=== PATIENT | female | born 1940 | race Caucasian/White ===

== ENCOUNTER → 2017-03-20 | Outpatient (CLI) | payer OTHER | LOC: FIMAGING 12:15 | PROVIDERS: ATTEND Obstetrics & Gynecology | DX: Z12.31 Encounter for screening mammogram for malignant neoplasm of breast (principal) | CPT/HCPCS: G0202 ==

== ENCOUNTER → 2017-12-17 | Outpatient (CLI) | payer OTHER | LOC: FIMAGING 10:11 | PROVIDERS: ATTEND Family Medicine | DX: R10.11 Right upper quadrant pain (principal) ==

== ENCOUNTER 2017-12-27 14:38 | Inpatient (IN) | payer OTHER ==
[2017-12-27] MEDS ORDERED: NS 500 ML IV ONE (15:33)
--- NOTE | 2017-12-27 15:37 | EDPHY ---
H & P Time Seen by Provider: 12/27/17 15:02 HPI/ROS: HPI Lower abdominal pain. 77-year-old female by private vehicle with her daughter. This patient reports that she awoke at 2:00 a.m. This morning with left lower quadrant abdominal pain. She describes pain as sharp and aching. She reports that it got better this morning but then returned early this afternoon and has been persistent since that time. Her last meal was at approximately 12 noon. She reports her last bowel movement was this morning. No melena. No blood in her stool. She has had some mild nausea but no vomiting. She has a history of diverticulosis. ROS: Constitutional: No fever, no chills. No weakness. Eyes: No discharge. No changes in vision. ENT: No sore throat. No nasal congestion or rhinorrhea. Respiratory: No cough. No shortness of breath. Cardiac: No chest pain, no palpitations. Gastrointestinal: As above, no vomiting, no diarrhea. Genitourinary: No hematuria. No dysuria or increased frequency with urination. Musculoskeletal: No back pain. No neck pain. No myalgias or arthralgias. Skin: No rashes. Neurological: No headache. No focal weakness or altered sensation. Past medical history: GERD, hypertension, type 2 diabetes, diverticulosis, gout. Social history: Nonsmoker. Here with her daughter. No alcohol. Physical Exam: General Appearance: Alert, no distress. This patient is responding to questions appropriately and in full sentences. This patient appears well- hydrated and well-nourished. Eyes: Pupils equal and round no pallor or injection. No lid edema, erythema or injection. Respiratory: There are no retractions, lungs are clear to auscultation with good air movement bilaterally. Cardiovascular: Regular rate and rhythm. No murmur. Gastrointestinal: Distended abdomen, but according to the patient this is her habitus. Abdomen is soft with mild to moderate left lower quadrant left inguinal tenderness on palpation, no masses, bowel sounds normal. No focal tenderness at McBurney's point. No Thomas sign. Neurological: Motor sensory function is grossly intact. Cranial nerves are normal. Gait is normal. Skin: Warm and dry, no rashes. Musculoskeletal: Neck is supple and nontender. Extremities are symmetrical. All joints range without pain or impingement. Psychiatric: No agitation. No depression. Database: EKG: Imaging: CT abdomen and pelvis with IV contrast: Significant for a mild to moderate sigmoid diverticulitis. No abscess. No free air. Results were discussed with staff radiologist Dr. Danyel Pineda. Procedures: Emergency department course: Triage vital signs reviewed. She is hypertensive. Low level tachycardia. Afebrile. IV was placed. She was placed on a monitor. She will be given 500 cc of IV normal saline over the next hour. CT of the abdomen and pelvis will be obtained to evaluate for diverticulitis. She declines pain medication and antiemetics at this time. 4:50 p.m., patient re-evaluated. She is now complaining of worsening left lower quadrant abdominal pain. She is asking for pain medication. She will be given IV hydromorphone as needed for pain and IV Zofran. I discussed the results of her CT scan. I discussed admission for IV antibiotics and further treatment. She endorses. She will be started on IV ciprofloxacin and Flagyl in the emergency department. Hospitalist paged. 4:55 p.m., spoke with hospitalist. Case discussed in detail. Patient accepted for admission to the hospitalist service. Her remaining emergency department course under my care has been uneventful. The patient was admitted in stable condition to the hospitalist service. Differential Diagnosis: The differential diagnosis on this patient includes but is not limited to diverticulitis, hernia, colitis, urinary tract infection. This represents a partial list of diagnoses considered. These considerations are based on history , physical exam, past history, reassessment and diagnostic testing. Smoking Status: Never smoked Constitutional: Initial Vital Signs Temperature (C) 37.1 C 12/27/17 14:42 Heart Rate 100 12/27/17 14:42 Respiratory Rate 18 12/27/17 14:42 Blood Pressure 199/90 H 12/27/17 14:42 O2 Sat (%) 94 12/27/17 14:42 O2 Delivery Mode Room Air Allergies/Adverse Reactions: No Known Allergies Allergy (Unverified 03/26/15 10:27) Home Medications: Medication Instructions Recorded Allopurinol [Allopurinol 300 MG 300 mg PO DAILY 03/26/15 (RX)] Cholecalciferol (Vitamin D3) 4,000 unit PO DAILY 03/26/15 [Vitamin D3] Herbals/Supplements -Info Only 1 ea PO DAILY 03/26/15 LISINOPRIL/HYDROCHLOROTHIAZIDE 1 tab PO DAILY 03/26/15 [PRINZIDE 20-25 MG TABLET] Naproxen Sodium [Aleve 220 MG (*)] 440 mg PO BID 03/26/15 Omeprazole 40 mg PO DAILY 03/26/15 Ciprofloxacin [Cipro] 500 mg PO BID #6 tab 03/28/15 metFORMIN HCL [Glucophage 500 mg 500 mg PO BIDMEAL 12/27/17 (*)] Medical Decision Making - Data Points Laboratory Results: Laboratory Results 12/27/17 15:30 12/27/17 15:30 12/27/17 12/27/17 12/27/17 15:30 15:30 15:30 WBC 13.28 10^3/uL H 10^3/uL (3.80-9.50) RBC 5.33 10^6/uL 10^6/uL (4.18-5.33) Hgb 16.6 g/dL H g/dL (12.6-16.3) Hct 48.8 % H % (38.0-47.0) MCV 91.6 fL fL (81.5-99.8) MCH 31.1 pg pg (27.9-34.1) MCHC 34.0 g/dL g/dL (32.4-36.7) RDW 14.2 % % (11.5-15.2) Plt Count 144 10^3/uL L 10^3/uL (150-400) MPV 11.0 fL fL (8.7-11.7) Neut % (Auto) 87.1 % H % (39.3-74.2) Lymph % (Auto) 6.6 % L % (15.0-45.0) [place] % (Auto) 4.8 % % (4.5-13.0) Eos % (Auto) 0.6 % % (0.6-7.6) Baso % (Auto) 0.4 % % (0.3-1.7) Nucleat RBC Rel Count 0.0 % % (0.0-0.2) Absolute Neuts (auto) 11.57 10^3/uL H 10^3/uL (1.70-6.50) Absolute Lymphs (auto) 0.88 10^3/uL L 10^3/uL (1.00-3.00) Absolute Monos (auto) 0.64 10^3/uL 10^3/uL (0.30-0.80) Absolute Eos (auto) 0.08 10^3/uL 10^3/uL (0.03-0.40) Absolute Basos (auto) 0.05 10^3/uL 10^3/uL (0.02-0.10) Absolute Nucleated RBC 0.00 10^3/uL 10^3/uL (0-0.01) Immature Gran % 0.5 % % (0.0-1.1) Immature Gran # 0.06 10^3/uL 10^3/uL (0.00-0.10) Sodium 140 mEq/L mEq/L (135-145) Potassium 4.8 mEq/L mEq/L (3.3-5.0) Chloride 101 mEq/L mEq/L (97-110) Carbon Dioxide 23 mEq/l mEq/l (22-31) Anion Gap 16 mEq/L mEq/L (8-16) BUN 20 mg/dL mg/dL (7-23) Creatinine 0.7 mg/dL mg/dL (0.6-1.0) Estimated GFR > 60 Glucose 122 mg/dL H mg/dL (70-100) Calcium 9.4 mg/dL mg/dL (8.5-10.4) Total Bilirubin 1.3 mg/dL mg/dL (0.1-1.4) Conjugated Bilirubin 0.7 mg/dL H mg/dL (0.0-0.5) Unconjugated Bilirubin 0.6 mg/dL mg/dL (0.0-1.1) AST 38 IU/L IU/L (14-46) ALT 17 IU/L IU/L (9-52) Alkaline Phosphatase 85 IU/L IU/L (38-126) Total Protein 7.2 g/dL g/dL (6.3-8.2) Albumin 4.0 g/dL g/dL (3.5-5.0) Specimen Hemolysis 129 Urine Color YELLOW Urine Appearance CLEAR Urine pH 6.0 (5.0-7.5) Ur Specific [place] 1.019 (1.002-1.030) Urine Protein NEGATIVE (NEGATIVE) Urine Ketones NEGATIVE (NEGATIVE) Urine Blood NEGATIVE (NEGATIVE) Urine Nitrate NEGATIVE (NEGATIVE) Urine Bilirubin NEGATIVE (NEGATIVE) Urine Urobilinogen NEGATIVE EU EU (0.2-1.0) Ur Leukocyte Esterase 1+ H (NEGATIVE) Urine RBC 3-5 /hpf H /hpf (0-3) Urine WBC 5-10 /hpf H /hpf (0-3) Ur Epithelial Cells TRACE /lpf /lpf (NONE-1+) Urine Glucose NEGATIVE (NEGATIVE) Medications Given: Discontinued Medications Sodium Chloride (Ns) 500 mls @ 0 mls/hr IV EDNOW ONE; Wide Open PRN Reason: Protocol Stop: 12/27/17 15:34 Last Admin: 12/27/17 15:53 Dose: 500 mls Departure - Departure Disposition: [facility] Inpatient Acute Clinical Impression: Lower abdominal pain, Diverticulitis, Possible urinary tract infection Referrals: ELVIRA RIVERA [Primary Care Provider] - As per Instructions
[2017-12-27 15:58] LABS: PLATELET COUNT 144 10^3/uL (150-400)
[2017-12-27] MEDS ORDERED: IOPAMIDOL (ISOVUE-300) 100 ML BTL ONE (16:11)
[2017-12-27] MEDS ORDERED: CIPROFLOXACIN 500 MG TAB PO ONE (16:38)
[2017-12-27] MEDS ORDERED: metroNIDAZOLE 500 MG TAB PO ONE (16:39)
[2017-12-27] MEDS ORDERED: ONDANSETRON 4 MG/2 ML VIAL IVP ONE (16:49)
[2017-12-27] MEDS ORDERED: CIPROFLOXACIN 400 MG/DEXTROSE 200 ML IV ONE (16:49)
[2017-12-27] MEDS ORDERED: HYDROmorphONE/DILAUDID 2 MG/ML INJ IVP ONE (16:49)
[2017-12-27] MEDS ORDERED: HYDROmorphONE/DILAUDID 1 MG/ML INJ ONE (17:44)
--- NOTE | 2017-12-27 18:15 | PDGENHP ---
History and Physical History and Physical: CC: Left lower quadrant abdominal pain HISTORY: This woman with known diverticulosis Cook comes into the ER today after awakening at 2:00 a.m. With left lower quadrant abdominal pain. His wax and wane through the day but is getting steadily worse this evening. No nausea or vomiting no fevers. ROS: A comprehensive 10 system review revealed no other significant findings PAST MEDICAL HISTORY: Diabetes mellitus Gout Esophageal reflux Hypertension Chronic intermittent RUQ pain, formerly for some reason followed with yearly CT abd for a few yrs, most recently a sono this year with "unremarkable" result per pt Chronic loose stools which she says has not been previously evaluated, present for years FAMILY MEDICAL HISTORY: parents , no specific concerning illness in relatives SOCIAL HISTORY: Accompanied here by her daughter today No use of tobacco alcohol or drugs She is Dr. aVrgas is her primary care physician MEDICATIONS: The patients list has been reconciled by our clinical pharmacist in the EMR. I have reviewed the list and ordered appropriate medicines. 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 The radiologist has also noticed a pancreatic cyst which I appreciate, does not have any particular concerning features but 12 month follow-up is recommended with repeat CT imaging 12 LEAD EKG: None done at this time ASSESSMENT: # ACUTE DIVERTICULITIS WITHOUT EVIDENCE OF COMPLICATION AT THIS TIME * no current evidence of complication # ELEVATED BLOOD PRESSURE UPON ARRIVAL TO ER WITH HISTORY OF HYPERTENSION; * suspect due to pain, follow closely here # DIABETES MELLITUS TYPE 2 SUGAR CURRENTLY IN GOOD CONTROL * takes metformen at home, had IV CT dye togay # ELEVATED HEMOGLOBIN LIKELY REPRESENTS HEMOCONCENTRATION, HOWEVER IF IT DOES NOT RESOLVE WITH HYDRATION HERE IT MAY POTENTIALLY WARRANT FURTHER ASSESSMENT OR FOLLOW-UP # PANCREATIC CYST INCIDENTALLY NOTED ON CT WITH RECOMMENDATION FOR [address] SCAN FOLLOW-UP BY RADIOLOGY * given her hx of yearly CT scans and chronic RUQ pain, I wonder if the CTs were done to follow this cyst, recommend she be given CD of CT images upon discharge to take to Dr Vargas on f/u after this visit PLANS: * Obs status on med surg, potentially home tomorrow * continue IV ABX * clear liquid diet for now * Her metformin is being held at this time due to IV contrast used in CT scan evening of December 27 day of admission * She should be given a CD with her CT images upon discharge so that Dr Vargas can review the pancreatic cyst to see if that is old or new I have reviewed the patient's case in detail with Dr. Brooks Billings I have reviewed the patient's past medical records as part of this assessment, including previous hospital visit records including laboratory data physicians notes etc
[2017-12-27] MEDS ORDERED: ZOLPIDEM TARTRATE 5 MG TAB PO PRN (18:53)
[2017-12-27] MEDS ORDERED: ONDANSETRON DISINTEGRATING 4 MG TAB PO PRN (18:53)
[2017-12-27] MEDS ORDERED: ONDANSETRON 4 MG/2 ML VIAL IVP PRN (18:53)
[2017-12-27] MEDS: PANTOPRAZOLE SODIUM 40 MG TAB PO SCH (22:03)
[2017-12-27] MEDS: NS 1,000 ML IV SCH (22:03)
[2017-12-28] MEDS: ACETAMINOPHEN 325 MG TAB PO PRN ×3 (04:54→21:02)
[2017-12-28 06:49] LABS: PLATELET COUNT 149 10^3/uL (150-400)
--- NOTE | 2017-12-28 07:57 | HOSPPROG ---
Hospitalist Progress Note Assessment/Plan: ASSESSMENT: 77 y/o F PMH DM, htn, chronic RUQ pain, who presented with LLQ pain starting yesterday AM. Worsened through course of day. # Acute sigmoid diverticulitis * no current evidence of complication * does have comorbid conditions of DM and htn and advanced age # htn: elevated BP on arrival to ED * suspect due to pain * improved this AM * home Lisin/HCTZ will be continued # DM with home oral hypoglycemics * takes metformin at home, held yesterday after CT * BS 162 this AM # Elevated hemoglobin * lower this AM/ likely related to hemoconcentration # Pancreatic cyst/incidentally noted on CT * given her hx of yearly CT scans and chronic RUQ pain, I wonder if the CTs were done to follow this cyst, recommend she be given CD of CT images upon discharge to take to Dr Vargas on f/u after this visit PLANS: * Nausea and hypoxa/ will admit inpatient for further surveillance * continue IV ABX * clear liquid diet for now * Her metformin is being held at this time due to IV contrast used in CT scan evening of December 27 day of admission * She should be given a CD with her CT images upon discharge so that Dr Vargas can review the pancreatic cyst to see if that is old or new Subjective: Has PLASCENCIA, N and noted to be hypoxic. Abdominal pain currently tolerable. Objective: Vital Signs Temp Pulse Resp BP Pulse Ox 99.6 F 82 16 106/61 93 12/28/17 07:28 12/28/17 07:28 12/28/17 07:28 12/28/17 07:28 12/28/17 07:28 Laboratory Results 12/28/17 05:45 12/27/17 12/28/17 12/29/17 05:59 05:59 05:59 Intake Total 300 500 Balance 300 500 - Physical Exam Constitutional: no apparent distress, not in pain Eyes: PERRL Cardiovascular: regular rate and rhythym, no murmur, rub, or gallop Respiratory: no respiratory distress, no rales or rhonchi Gastrointestinal: normoactive bowel sounds, soft, non-tender abdomen, other ( mild tenderness LLQ) Skin: warm, normal color Neurologic: AAOx3 Psychiatric: interacting appropriately, not anxious ICD10 Worksheet Patient Problems: Problems Problem Status Onset Diverticulitis Acute Lower abdominal pain Acute Possible urinary tract infection Acute Fever Acute UTI (urinary tract infection) Acute
[2017-12-28] MEDS ORDERED: levOFLOXACIN 500 MG/DEXTROSE 100 ML IV ONE (08:00)
[2017-12-28] MEDS: CHOLECALCIFEROL VIT D3 2,000 UNITS TAB/CAP PO SCH (08:24)
[2017-12-28] MEDS: ENOXAPARIN 40 MG/0.4 ML SYR SC SCH (08:24)
[2017-12-28] MEDS: ALLOPURINOL 300 MG TAB PO SCH (08:24)
[2017-12-28] MEDS: LISINOPRIL/HCTZ 10/12.5 MG 1 EA TAB PO SCH (11:59)
--- NOTE | 2017-12-28 12:29 | ASMTCMCOM ---
CM Note CM Note Notes: Spoke w/RN, anticipate she will dc home w/support of daughter when medically stable. CM available for any changes. DC Plan: Independent Date Signed: 12/28/2017 12:28 PM Electronically Signed By:Xuan Phoenix RN
--- NOTE | 2017-12-28 17:39 | PDMN ---
Medical Necessity Medical necessity: C/M review: est.> 2 MN LOS fro eval and TX of acute and persistent sigmoid diverticulitis, nausea, hypoxia, left lower quadrant abdominal pain, elevated hemoglobin - lower this AM likely related to hemoconcentration, requiring ongoing IV Flagyl, IV Morphine, antiemetics, IV fluids, pulse oximtry, supplemental O2, clear liquid diet for now, comorbid hypertension, diabetes treated with home oral hypoglycemic, pancreatic cyst incidentally noted on CT, metformin held due to IV contract used in CT done evening of December 27, 2017 per 12/28/2017 Hospitalist progress note.
[2017-12-28] MEDS: NS 1,000 ML IV SCH (18:06)
[2017-12-28] MEDS: PANTOPRAZOLE SODIUM 40 MG TAB PO SCH (21:02)
[2017-12-29 05:20] LABS: PLATELET COUNT 147 10^3/uL (150-400)
[2017-12-29] MEDS: ACETAMINOPHEN 325 MG TAB PO PRN ×2 (06:02→17:20)
--- NOTE | 2017-12-29 08:59 | HOSPPROG ---
Hospitalist Progress Note Assessment/Plan: ASSESSMENT: 77 y/o F PMH DM, htn, chronic RUQ pain, who presented with LLQ pain starting AM that worsened through course of day. # Acute sigmoid diverticulitis * no current evidence of complication * does have comorbid conditions of DM and htn and advanced age * WBC still elevated # htn: elevated BP on arrival to ED * suspect due to pain * some mild elevations today * home Lisin/HCTZ continued # DM with home oral hypoglycemics * takes metformin at home, held since 12/[address] * BS 133 this AM * continue to hold until taking PO # Elevated hemoglobin * lower this AM/ likely related to hemoconcentration # Pancreatic cyst/incidentally noted on CT * given her hx of yearly CT scans and chronic RUQ pain, I wonder if the CTs were done to follow this cyst, recommend she be given CD of CT images upon discharge to take to Dr Vargas on f/u after this visit #DVT ppx * on Enox. PLANS: * continues to feel poorly with mild F and cough/pnd when supine * check CXR * continue IV ABX * clear liquid diet for now * Her metformin is being held at this time due to IV contrast used in CT scan evening of December 27 day of admission * She should be given a CD with her CT images upon discharge so that Dr Vargas can review the pancreatic cyst to see if that is old or new * keep inpatient until clinical improvement Subjective: Feels rigors, weak. Mild abdominal pain. Noted feeling pnd when supine. Objective: Vital Signs Temp Pulse Resp BP Pulse Ox 99.0 F 80 16 130/72 H 89 L 12/29/17 07:30 12/29/17 07:30 12/29/17 07:30 12/29/17 07:30 12/29/17 07:30 Laboratory Results 12/29/17 04:56 12/28/17 12/29/17 12/30/17 05:59 05:59 05:59 Output Total 1200 Balance -1200 - Physical Exam Constitutional: no apparent distress Eyes: anicteric sclera Cardiovascular: regular rate and rhythym Respiratory: no respiratory distress, no rales or rhonchi Gastrointestinal: normoactive bowel sounds, tenderness, other (abdomen soft) Skin: warm, normal color Neurologic: AAOx3 Psychiatric: interacting appropriately, not anxious ICD10 Worksheet Patient Problems: Problems Problem Status Onset Fever Acute UTI (urinary tract infection) Acute Lower abdominal pain Acute Diverticulitis Acute Possible urinary tract infection Acute
[2017-12-29] MEDS: ALLOPURINOL 300 MG TAB PO SCH (10:01)
[2017-12-29] MEDS: CHOLECALCIFEROL VIT D3 2,000 UNITS TAB/CAP PO SCH (10:01)
[2017-12-29] MEDS: ENOXAPARIN 40 MG/0.4 ML SYR SC SCH (10:01)
--- NOTE | 2017-12-29 10:33 | PDCONSULT ---
Medical Staff Physician Note: Surgery Consult dictated #[id number] S MD See, FACS
[2017-12-29] MEDS: NS 1,000 ML IV SCH (11:14)
--- NOTE | 2017-12-29 11:18 | GCON ---
[f rep st] CONSULTATION SURGICAL CONSULTATION DATE OF CONSULTATION: 12/29/2017 CHIEF COMPLAINT: Abdominal pain. HISTORY OF PRESENT ILLNESS: Patient is a 77-year-old female who was admitted 2 days ago for left low er quadrant pain and findings of early diverticulitis on CT. She was started on intravenous Levaquin and Flagyl and kept on a clear liquid diet. She felt somewhat clinically improved on the day after admission, though experienced some nausea and her leukocytosis worsened slightly. Because of some mi ld dyspnea, chest x-ray was obtained this morning, which showed free air into the right hemidiaphragm and surgical consultation was requested. Patient reports feeling about the same. She does not have any change in her pain, though she continu es to have pain mostly in the lower abdomen on the left side. She has not had any formed bowel movem ents since admission and typically tends towards loose stools, rather than constipation. Her last co lonoscopy was 12 years ago and she was told she had diverticula at that time. PAST MEDICAL HISTORY: Significant for right knee surgery 2015. Remote past, mid 80s, patient had a gastric ulcer treated with Tagamet (cimetidine). ALLERGIES: She has no known drug allergies. CURRENT MEDICATIONS: Include lisinopril, hydrochlorothiazide, vitamin D3, allopurinol, omeprazole, a nd at home, patient takes Naprosyn and ibuprofen concurrently and uses herbal supplements. She has o nly been hospitalized twice in her entire life. SOCIAL HISTORY: Patient is currently . Her recently . She has 3 daughters [place] in the area. She is a nonsmoker. Denies alcohol use. FAMILY HISTORY: Noncontributory. REVIEW OF SYSTEMS: Patient denies any upper abdominal pain, vomiting, though she has mild nausea. S he has a history of severe reflux for which she takes omeprazole. Has had an upper endoscopy with di latation in the past. PHYSICAL EXAMINATION: VITAL SIGNS: O2 saturation is 89% on room air, temperature is 37.2, T-max was 37.8, blood pressure was 130/72, heart rate is 80, respiratory rate is 16. GENERAL: Patient is a p leasant elderly woman who appears in mild distress. HEENT: There is no scleral icterus. NECK: No jugular venous distention. Trachea is midline. CHEST: Clear. HEART: Regular in rate and rhythm. ABDOMEN: Protuberant, soft with normoactive bowel sounds. The patient has localized tenderness to percussion and palpation in the lower abdomen, greater on the left than right. No upper abdominal te nderness to palpation or percussion. No hepatosplenomegaly or mass. No palpable hernias. LABORATORY/IMAGING: The patient's plain film was reviewed and shows free air under the right hemidia phragm. No significant pulmonary infiltrates or pleural effusions. CT on admission showed diverticulosis with mild diverticulitis. No free fluid or free air. WBC is 18.4, hemoglobin 11.1, hematocrit 34. Sodium 140, potassium 4.8, chloride 101, BUN 20, creati nine 0 7, glucose 122. Bilirubin 1.3, conjugated bilirubin 0.7. AST and ALT as well as alkaline jordon sphatase are normal. Albumin was 4.0. IMPRESSION: Diverticulitis with new findings of pneumoperitoneum on plain chest x-ray. No particula r worsening in the patient's clinical symptomatology, though she has had low-grade fevers and persist ent elevation of her white blood cell count. I have recommended obtaining repeat labs, including a venous lactate and metabolic panel and making t he patient n.p.o. If she has persistent fever on antibiotics or signs of peritonitis on exam (which she does not have currently), then, I would recommend laparotomy. I discussed the findings with the patient in detail and will check her throughout the day for changes in her condition. /[id number]/MODL
[2017-12-29] MEDS: levOFLOXACIN 500 MG/DEXTROSE 100 ML IV SCH (12:51)
[2017-12-29] MEDS: LISINOPRIL/HCTZ 10/12.5 MG 1 EA TAB PO SCH (13:15)
--- NOTE | 2017-12-29 16:39 | ASMTCMCOM ---
CM Note CM Note Notes: CM chart review. Patient was to be d/c 12/28 but did not discharge due to LLQ pain and is being monitored for perforation. CM met with patient, states she does not have any needs upon discharge. Per RN, discharge likely 12/30. CM to follow. D/C Plan: Home independent. Date Signed: 12/29/2017 04:38 PM Electronically Signed By:Diana Arriola
[2017-12-29 18:28] LABS: PLATELET COUNT 160 10^3/uL (150-400)
--- NOTE | 2017-12-29 20:22 | SOAPPROG ---
Downtime Inpatient MD Late Entry SOAP Note: Resting Comfortably/pain about the same T max 100.1 VSS abd: soft with LLQ tenderness, minimal guarding venous lactate 0.8 wbc 16K Imp: diverticulitis, perforated without diffuse peritonitis Rec: continue IV Abx, discussed possible need for emergent surgical intervention clinically she is doing well and I will restart clear liquids prince Cui MD, FACs
[2017-12-29] MEDS: PANTOPRAZOLE SODIUM 40 MG TAB PO SCH (20:48)
[2017-12-30 04:50] LABS: PLATELET COUNT 185 10^3/uL (150-400)
--- NOTE | 2017-12-30 06:27 | SOAPPROG ---
SOAP Progress Note Assessment/Plan: Assessment: perforated diverticulitis responding to antibiotic therapy Plan: continue clear liquids today/anticipate advancing diet and transitioning to oral abx tomorrow if continuing to improve clinically 12/30/17 06:27 Subjective: resting comfortably/less pain/passing flatus Objective: Vital Signs Temp Pulse Resp BP Pulse Ox 37.1 C 85 16 157/90 H 95 12/30/17 03:41 12/30/17 03:41 12/30/17 03:41 12/30/17 03:41 12/30/17 03:41 Laboratory Results 12/30/17 04:22 12/30/17 04:22 12/29/17 12/30/17 12/31/17 05:59 05:59 05:59 Intake Total 300 Output Total 1200 2550 Balance -1200 -2250 Physical Exam - Physical Exam General Appearance: no apparent distress Cardiac/Chest: regular rate, rhythm Abdomen: soft, distended, other (mild left lower quadrant tenderness without guarding) Pelvic Exam: deferred Rectal: deferred Skin: warm/dry Neuro/Psych: alert, normal mood/affect ICD10 Worksheet Patient Problems: Problems Problem Status Onset Diverticulitis Acute Lower abdominal pain Acute Possible urinary tract infection Acute Fever Acute UTI (urinary tract infection) Acute
--- NOTE | 2017-12-30 08:33 | HOSPPROG ---
Hospitalist Progress Note Assessment/Plan: 77 y/o F PMH DM, htn, chronic RUQ pain, who presented with LLQ pain starting yesterday AM. Worsened through course of day. Today is my 1st encounter with the patient. Chart reviewed. # Acute sigmoid diverticulitis * no current evidence of complication * On Flagyl and Levaquin * Appreciate Dr. Cui seeing the patient # htn: elevated BP on arrival to ED * suspect due to pain * bp 146/76 * home Lisin/HCTZ will be continued # DM with home oral hypoglycemics * takes metformin at home, held, recently had a CT # Elevated hemoglobin * resolved # Pancreatic cyst/incidentally noted on CT * given her hx of yearly CT scans and chronic RUQ pain, I wonder if the CTs were done to follow this cyst, recommend she be given CD of CT images upon discharge to take to Dr Vargas on f/u after this visit #irregular heart beat noted on my evaluation will get a 12 lead to further evaluate PLANS: trial of clear liquids, dc fluids Subjective: Vicky is feeling well, has no complaints. Objective: Vital Signs Temp Pulse Resp BP Pulse Ox 37.0 C 79 17 146/76 H 97 12/30/17 07:56 12/30/17 07:56 12/30/17 07:56 12/30/17 07:56 12/30/17 07:56 Laboratory Results 12/30/17 04:22 12/30/17 04:22 12/29/17 12/30/17 12/31/17 05:59 05:59 05:59 Intake Total 300 Output Total 1200 2550 500 Balance -1200 -2250 -500 - Physical Exam Constitutional: no apparent distress, No not in pain (left and right lower quadrants) Ears, Nose, Mouth, Throat: hearing normal Cardiovascular: regular rate and rhythym, other (extra beats frequently heard) Respiratory: no respiratory distress Gastrointestinal: normoactive bowel sounds, tenderness Skin: warm Musculoskeletal: full muscle strength Neurologic: AAOx3 Psychiatric: interacting appropriately ICD10 Worksheet Patient Problems: Problems Problem Status Onset Diverticulitis Acute Lower abdominal pain Acute Possible urinary tract infection Acute Fever Acute UTI (urinary tract infection) Acute
[2017-12-30] MEDS: levOFLOXACIN 500 MG/DEXTROSE 100 ML IV SCH (08:41)
[2017-12-30] MEDS: ALLOPURINOL 300 MG TAB PO SCH (08:41)
[2017-12-30] MEDS: CHOLECALCIFEROL VIT D3 2,000 UNITS TAB/CAP PO SCH (08:41)
--- NOTE | 2017-12-30 11:29 | CPEKG ---
Heart Rate: 72 RR Interval: 833 P-R Interval: 152 QRSD Interval: 72 QT Interval: 396 QTC Interval: 434 P [place]: 68 QRS [place]: 23 T Wave [place]: 11 EKG Severity - ABNORMAL ECG - EKG Impression: SINUS RHYTHM EKG Impression: SUPRAVENTRICULAR BIGEMINY EKG Impression: BORDERLINE T ABNORMALITIES, INFERIOR LEADS Electronically Signed By: Steve Linn 30-Dec-2017 15:15:23
[2017-12-30] MEDS: LISINOPRIL/HCTZ 10/12.5 MG 1 EA TAB PO SCH (13:01)
[2017-12-30] MEDS: PANTOPRAZOLE SODIUM 40 MG TAB PO SCH (21:22)
[2017-12-31 05:21] LABS: PLATELET COUNT 201 10^3/uL (150-400)
[2017-12-31] MEDS: ALLOPURINOL 300 MG TAB PO SCH (07:36)
[2017-12-31] MEDS: CHOLECALCIFEROL VIT D3 2,000 UNITS TAB/CAP PO SCH (07:36)
[2017-12-31] MEDS: levOFLOXACIN 500 MG/DEXTROSE 100 ML IV SCH (07:36)
[2017-12-31 07:52] VITALS: BP 148/92
--- NOTE | 2017-12-31 08:25 | PDCONSULT ---
[employer] Operator Note: Vicky feels better, passing flatus and stool no fevers Abd: soft/minimal LLQ tenderness Imp: clinically resolving diverticulitis with limited perforation pancreatic cysts-indeterminate Rec: low residue diet x 2 weeks then progress to high fiber diet FU colonoscopy/EGD with endoscopic ultrasound Dr. Duron/[facility], [place] MD See, FACS
--- NOTE | 2017-12-31 11:13 | HOSPPROG ---
Hospitalist Progress Note Assessment/Plan: 77 y/o F PMH DM, htn, chronic RUQ pain, who presented with LLQ pain starting yesterday AM. Worsened through course of day. # Acute sigmoid diverticulitis * no current evidence of complication * On Flagyl and Levaquin * Appreciate Dr. Cui seeing the patient * low residue diet # htn: elevated BP on arrival to ED * home Lisin/HCTZ will be continued # DM with home oral hypoglycemics * takes metformin at home, held, recently had a CT # Elevated hemoglobin * resolved # Pancreatic cyst/incidentally noted on CT * recommending she get colonscopy and EUS with Dr Duron for closer evaluation #irregular heart beat noted on my evaluation 12 leads shows sinus w PAC's PLANS: dc home w close f/u Subjective: Vicky is feeling well, abdominal pain is better, gets some cramping type pain in lower abdomen. Objective: Vital Signs Temp Pulse Resp BP Pulse Ox 36.8 C 81 18 148/92 H 92 12/31/17 07:51 12/31/17 07:51 12/31/17 07:51 12/31/17 07:51 12/31/17 07:51 Laboratory Results 12/31/17 04:55 12/30/17 04:22 12/30/17 12/31/17 01/01/18 05:59 05:59 05:59 Intake Total 300 600 Output Total 2550 500 Balance -2250 100 - Physical Exam Constitutional: no apparent distress, appears nourished, not in pain Eyes: PERRL Ears, Nose, Mouth, Throat: hearing normal Cardiovascular: regular rate and rhythym, other (extra beats) Respiratory: no respiratory distress Gastrointestinal: normoactive bowel sounds, tenderness (slight in bilateral lower quadrants) Skin: warm Musculoskeletal: full muscle strength Neurologic: AAOx3 Psychiatric: interacting appropriately ICD10 Worksheet Patient Problems: Problems Problem Status Onset Diverticulitis Acute Fever Acute Lower abdominal pain Acute Possible urinary tract infection Acute UTI (urinary tract infection) Acute
--- NOTE | 2017-12-31 11:28 | GDS ---
[f rep st] DISCHARGE SUMMARY DISCHARGE DIAGNOSES: 1. Acute sigmoid diverticulitis. CT shows no evidence of complication. She was followed and seen by Dr. Cui. 2. Hypertension. Resumed her home medications. 3. Diabetes. Her metformin will be resumed at discharge. She recently had a CT. 4. Elevated hemoglobin, resolved. 5. Pancreatis cyst. Reviewed this with the patient and Dr. Cui. The recommendation is for her to get an EUS with Dr. Duron when she has a followup colonoscopy. 6. Irregular heartbeat. Evaluated her 12-lead. She is in a sinus rhythm with PACs. DISCHARGE CONDITION: Stable. Blood pressure is 148/92, heart rate of 81, respiratory rate of 18, O2 saturation on room air 92%, temperature is 36.8 Celsius. MEDICATIONS AT DISCHARGE: Please see the EMR. DISCHARGE INSTRUCTIONS: 1. To resume her metformin. 2. Follow up with Dr. Vargas next week. 3. Low residue diet x2 weeks and progress to a high-fiber diet. 4. Follow up with colonoscopy and EGD with an endoscopic ultrasound, Dr. Duron. She needs further evaluation of that pancreatic cyst. 5. Do not drink alcohol while she is on Flagyl. 6. Levaquin can affect the tendons especially the Achilles, to stop taking this medication if she has Achilles pain. 7. To start the Flagyl tonight and the Levaquin tomorrow. Greater than 30 minutes were spent in discharging and coordinating the patient' s care. Copy requested to: Dr. Cui /[id number]/MODL MTDD
== END 2017-12-31 10:55 | disposition home or self-care (01) | DRG 392 ==
LOC: F3E 20:00 → OBSVTOIN 12-28 16:26
PROVIDERS: ADMIT Internal Medicine; ATTEND Internal Medicine
DX: K57.32 Diverticulitis of large intestine without perforation or abscess without bleeding (principal); K86.2 Cyst of pancreas; E86.9 Volume depletion, unspecified; I10 Essential (primary) hypertension; E11.9 Type 2 diabetes mellitus without complications; I49.9 Cardiac arrhythmia, unspecified; K21.9 Gastro-esophageal reflux disease without esophagitis; M10.9 Gout, unspecified; Z79.84 Long term (current) use of oral hypoglycemic drugs
CPT/HCPCS: G0378; J0744; J1170; J1650; J1956; J2270; J2405; Q9967

== ENCOUNTER → 2018-04-15 | Outpatient (CLI) | payer OTHER ==
[~2018-04-15] MED LIST: GADOBUTROL 10 ML VIAL IVP ONE
== END ==
LOC: FIMAGING 07:22
PROVIDERS: ATTEND Internal Medicine Gastroenterology
DX: K86.2 Cyst of pancreas (principal); K86.89 Other specified diseases of pancreas; K44.9 Diaphragmatic hernia without obstruction or gangrene
CPT/HCPCS: 74183; A9585; 82565-PO

== ENCOUNTER 2018-04-27 14:10 | Emergency (ER) | payer OTHER ==
--- NOTE | 2018-04-27 15:01 | EDPHY ---
H & P Stated Complaint: LLq pain "feels like my divertic" Time Seen by Provider: 04/27/18 14:23 HPI/ROS: CHIEF COMPLAINT: Left lower quadrant pain HISTORY OF PRESENT ILLNESS: 77-year-old female with diabetes and diverticulosis presents with left lower quadrant pain. Onset of left lower quadrant pain this morning. The pain is moderate and persistent. Some relief with ibuprofen. Associated with nausea, no fever or diarrhea. This prior episode of diverticulitis. In December 2017, she was diagnosed with diverticulitis and pyelonephritis and was admitted for several days. REVIEW OF SYSTEMS: complete 10 point ROS reviewed and is negative except for the noted elements in the HPI - Medical/Surgical History Hx Asthma: No Hx Chronic Respiratory Disease: No Hx Diabetes: Yes Hx Cardiac Disease: No Hx Renal Disease: No Hx Cirrhosis: No Hx Alcoholism: No Hx HIV/AIDS: No Hx Splenectomy or Spleen Trauma: No Other PMH: NIDDM, gout, gerd, htn, diverticulosis - Social History Smoking Status: Never smoked - Physical Exam Exam: General Appearance: Alert, pleasant Eyes: Pupils equal and round, no conjunctival pallor or injection ENT, Mouth: Mucous membranes moist Neck: Normal inspection Respiratory: Lungs are clear to auscultation Cardiovascular: Regular rate and rhythm Gastrointestinal: Abdomen is soft, left lower quadrant tenderness Neurological: A&O, nonfocal, normal gait Skin: Warm and dry, no rash Extremities: Nontender, no pedal edema Psychiatric: Mood and affect normal Constitutional: Initial Vital Signs Temperature (C) 37.0 C 04/27/18 14:13 Heart Rate 81 04/27/18 14:13 Respiratory Rate 16 04/27/18 14:13 Blood Pressure 158/75 H 04/27/18 14:13 O2 Sat (%) 97 04/27/18 14:13 O2 Delivery Mode Room Air Allergies/Adverse Reactions: No Known Allergies Allergy (Unverified 03/26/15 10:27) Home Medications: Medication Instructions Recorded Allopurinol 04/27/18 Amlodipine Besylate 04/27/18 Ciprofloxacin [Cipro] 500 mg PO BID #20 tab 04/27/18 Hydrocodone/APAP 5/325 [[place] 1 - 2 tab PO Q4H PRN #10 tab 04/27/18 5/325] Lisinopril 04/27/18 Metformin 1000 mg 04/27/18 Omeprazole 04/27/18 Ondansetron Odt [Zofran Odt 4 mg 4 mg PO Q4 PRN #6 tab 04/27/18 (*)] metroNIDAZOLE [Flagyl 500 mg (*)] 500 mg PO BID #20 tab 04/27/18 Medical Decision Making - Diagnostics Imaging Results: Imaging Impressions Abdomen CT 04/27/18 14:56 Impression:1. Mild diverticulitis of the mid sigmoid without evidence of colonic obstruction or perforation. 2. Stable pancreatic cysts x 5 months. 3. Chronic hiatal hernia and mitral valve region pathology. Results discussed with Dr. Lindsay Johnson at 3:33 PM. General information for patients regarding this examination can be found At [email or web address] [employer]. If you have questions or comments about this report, please contact me at [phone] (hospital) or [phone] (cell). Imaging: Discussed imaging studies w/ physically impaired teacher Radiologist, I viewed and interpreted images myself ED Course/Re-evaluation: This patient presents with left lower quadrant pain and nausea. Most likely secondary to acute diverticulitis. Consideration for the oral antibiotics without imaging discussed with the patient and her daughter. Given diabetes and fairly recent admission for IV antibiotics secondary to diverticulitis/ pyelonephritis, will obtain CT scan. CT scan of the abdomen and pelvis reveals mild diverticulitis. Urinalysis is unremarkable. Results discussed with the patient and her daughter. Will treat as out patient with Cipro and Flagyl. Warning signs discussed. Differential Diagnosis: Differential diagnosis includes though it is not limited to appendicitis, cholecystitis, diverticulitis, pyelonephritis, bowel perforation, small bowel obstruction. - Data Points Laboratory Results: Laboratory Results 04/27/18 14:25 04/27/18 14:25 04/27/18 04/27/18 04/27/18 15:05 15:01 14:25 WBC RBC Hgb POC Hgb 13.9 gm/dL gm/dL (12.6-16.3) Hct POC Hct 41 % % (38-47) MCV MCH MCHC RDW Plt Count MPV Neut % (Auto) Lymph % (Auto) [place] % (Auto) Eos % (Auto) Baso % (Auto) Nucleat RBC Rel Count Absolute Neuts (auto) Absolute Lymphs (auto) Absolute Monos (auto) Absolute Eos (auto) Absolute Basos (auto) Absolute Nucleated RBC Immature Gran % Immature Gran # POC Sodium 141 mEq/L mEq/L (135-145) Sodium 139 mEq/L mEq/L (135-145) POC Potassium 4.0 mEq/L mEq/L (3.3-5.0) Potassium 4.2 mEq/L mEq/L (3.3-5.0) POC Chloride 106 mEq/L mEq/L (97-110) Chloride 106 mEq/L mEq/L (97-110) Carbon Dioxide 23 mEq/l mEq/l (22-31) Anion Gap 10 mEq/L mEq/L (6-14) POC BUN 31 mg/dL H mg/dL (7-23) BUN 35 mg/dL H mg/dL (7-23) Creatinine 0.8 mg/dL mg/dL (0.6-1.0) POC Creatinine 0.8 mg/dL mg/dL (0.6-1.0) Estimated GFR > 60 Glucose 131 mg/dL H mg/dL (70-100) POC Glucose 130 mg/dL H mg/dL (70-100) Calcium 10.0 mg/dL mg/dL (8.5-10.4) Urine Color YELLOW Urine Appearance CLEAR Urine pH 5.0 (5.0-7.5) Ur Specific [place] 1.021 (1.002-1.030) Urine Protein NEGATIVE (NEGATIVE) Urine Ketones NEGATIVE (NEGATIVE) Urine Blood NEGATIVE (NEGATIVE) Urine Nitrate NEGATIVE (NEGATIVE) Urine Bilirubin NEGATIVE (NEGATIVE) Urine Urobilinogen NEGATIVE EU EU (0.2-1.0) Ur Leukocyte Esterase NEGATIVE (NEGATIVE) Urine Glucose NEGATIVE (NEGATIVE) 04/27/18 14:25 WBC 15.56 10^3/uL H 10^3/uL (3.80-9.50) RBC 4.20 10^6/uL 10^6/uL (4.18-5.33) Hgb 13.3 g/dL g/dL (12.6-16.3) POC Hgb Hct 40.0 % % (38.0-47.0) POC Hct MCV 95.2 fL fL (81.5-99.8) MCH 31.7 pg pg (27.9-34.1) MCHC 33.3 g/dL g/dL (32.4-36.7) RDW 14.0 % % (11.5-15.2) Plt Count 213 10^3/uL 10^3/uL (150-400) MPV 10.9 fL fL (8.7-11.7) Neut % (Auto) 85.2 % H % (39.3-74.2) Lymph % (Auto) 9.2 % L % (15.0-45.0) [place] % (Auto) 4.2 % L % (4.5-13.0) Eos % (Auto) 0.6 % % (0.6-7.6) Baso % (Auto) 0.3 % % (0.3-1.7) Nucleat RBC Rel Count 0.0 % % (0.0-0.2) Absolute Neuts (auto) 13.26 10^3/uL H 10^3/uL (1.70-6.50) Absolute Lymphs (auto) 1.43 10^3/uL 10^3/uL (1.00-3.00) Absolute Monos (auto) 0.65 10^3/uL 10^3/uL (0.30-0.80) Absolute Eos (auto) 0.09 10^3/uL 10^3/uL (0.03-0.40) Absolute Basos (auto) 0.05 10^3/uL 10^3/uL (0.02-0.10) Absolute Nucleated RBC 0.00 10^3/uL 10^3/uL (0-0.01) Immature Gran % 0.5 % % (0.0-1.1) Immature Gran # 0.08 10^3/uL 10^3/uL (0.00-0.10) POC Sodium Sodium POC Potassium Potassium POC Chloride Chloride Carbon Dioxide Anion Gap POC BUN BUN Creatinine POC Creatinine Estimated GFR Glucose POC Glucose Calcium Urine Color Urine Appearance Urine pH Ur Specific [place] Urine Protein Urine Ketones Urine Blood Urine Nitrate Urine Bilirubin Urine Urobilinogen Ur Leukocyte Esterase Urine Glucose Medications Given: Discontinued Medications Sodium Chloride (Ns) 500 mls @ 1,000 mls/hr IV EDNOW ONE PRN Reason: Protocol Stop: 04/27/18 15:48 Last Admin: 04/27/18 15:24 Dose: 500 mls Point of Care Test Results: Chemistry 04/27/18 15:01 POC Sodium 141 mEq/L mEq/L (135-145) POC Potassium 4.0 mEq/L mEq/L (3.3-5.0) POC Chloride 106 mEq/L mEq/L (97-110) POC BUN 31 mg/dL H mg/dL (7-23) POC Creatinine 0.8 mg/dL mg/dL (0.6-1.0) POC Glucose 130 mg/dL H mg/dL (70-100) ISTAT H&H 04/27/18 15:01 POC Hgb 13.9 gm/dL gm/dL (12.6-16.3) POC Hct 41 % % (38-47) Departure - Departure Disposition: Home, Routine, Self-Care Clinical Impression: Diverticulitis large intestine Qualifiers: Diverticulitis bleeding: without bleeding Diverticulitis complication: without perforation or abscess Qualified Code(s): K57.32 - Diverticulitis of large intestine without perforation or abscess without bleeding Condition: Good Instructions: Diverticulitis (ED) Additional Instructions: Ibuprofen 600 mg 3 times daily while the pain persists. Referrals: ELVIRA RIVERA [Primary Care Provider] - As per Instructions Prescriptions: Ciprofloxacin [Cipro] 500 mg PO BID #20 tab Hydrocodone/APAP 5/325 [[place] 5/325] 1 - 2 tab PO Q4H PRN #10 tab PRN Reason: Pain, Moderate metroNIDAZOLE [Flagyl 500 mg (*)] 500 mg PO BID #20 tab Ondansetron Odt [Zofran Odt 4 mg (*)] 4 mg PO Q4 PRN #6 tab PRN Reason: Nausea
[2018-04-27] MEDS ORDERED: IOPAMIDOL (ISOVUE-300) 100 ML BTL ONE (15:02)
[2018-04-27 15:08] LABS: PLATELET COUNT 213 10^3/uL (150-400)
[2018-04-27] MEDS ORDERED: NS 500 ML IV ONE (15:19)
[2018-04-27 16:00] VITALS: BP 118/60
== END 2018-04-27 16:00 | disposition home or self-care (01) ==
DX: K57.32 Diverticulitis of large intestine without perforation or abscess without bleeding (principal); E86.9 Volume depletion, unspecified; E11.9 Type 2 diabetes mellitus without complications; I10 Essential (primary) hypertension; K21.9 Gastro-esophageal reflux disease without esophagitis; Z79.84 Long term (current) use of oral hypoglycemic drugs
CPT/HCPCS: 74177; 96360; 99285; Q9967; 82435-PO; 82565-PO; 82947-PO; 84132-PO; 84295-PO; 84520-PO; 85014-PO

== ENCOUNTER → 2018-04-29 | Outpatient (CLI) | payer OTHER | LOC: FIMAGING 10:55 | PROVIDERS: ATTEND Family Medicine | DX: Z12.31 Encounter for screening mammogram for malignant neoplasm of breast (principal) ==